=== PATIENT | female | born 1985 | race Caucasian/White ===

== ENCOUNTER 2019-04-16 08:15 | Day surgery (SDC) | payer OTHER ==
[~2019-04-16] VITALS: Ht 165.1 cm; Wt 86.1 kg
--- NOTE | ~2019-04-16 | O ---
[facility] [place] [address] OPERATIVE REPORT Name: MARIBEL TAVERASSHAVONNE Room #: 150-4 [facility] M..#: [id number] Admission: 04/16/19 Attend Phys: Abe Almeida MD Discharge: Date of : 89 Report #: [id number] THIS REPORT FOR: //name// CC: Willa Almeida DATE OF SERVICE: 04/16/2019 PREOPERATIVE DIAGNOSES: Chronic tonsillitis with tonsil and adenoid hypertrophy. POSTOPERATIVE DIAGNOSES: Chronic tonsillitis with tonsil and adenoid hypertrophy. OPERATIVE PROCEDURES: Tonsillectomy and adenoidectomy. ANESTHESIA: General endotracheal. DESCRIPTION OF PROCEDURE: The patient was taken to the operating room and placed in supine position. General anesthesia was induced by endotracheal intubation. Once adequate general anesthesia was obtained, the patient was draped in a sterile manner. A Jacque-Parish mouth gag was placed into the patient's mouth and tongue was deviated upwards. A throat pack was placed. Red rubber catheters were placed through the nose and nasopharynx and out the oropharynx and oral cavity to elevate the soft palate and the nasopharynx was visualized indirectly using a mirror. The adenoid was hypertrophied and adenoidectomy was performed by placing the adenoid curette at the base of the vomer and sweeping downward. The adenoid was removed and sent to pathology. Nasopharyngeal packing was placed. The right tonsil was grasped and deviated towards midline. An incision was placed in the anterior tonsillar pillar using the Bovie electrocautery and a plane between tonsillar capsule and tonsillar fossa was established. Dissection was carried out in this plane using the Bovie and hemostasis was achieved during the dissection. Dissection was carried out from superior to inferior. The inferior pole was incised and posterior tonsillar mucosa was incised. The tonsil was removed and sent to pathology. The left tonsil was removed in exactly the same manner. The area was then irrigated with normal saline. Hemostasis was verified in the tonsillar beds. The nasopharyngeal packing was removed. The nasopharynx was irrigated and there was adequate hemostasis in the nasopharynx as well. The throat pack, mouth gag and red rubber catheters were all removed. The patient tolerated the procedure well. Blood loss was approximately 10 mL. The patient was then awoken and taken to the recovery room in stable condition for postoperative monitoring. By: [id number] Abe Almeida MD /nt
[~2019-04-16 08:15] MED LIST: MECLIZINE HCL25 M1 PO; MULTIVITAMINS1 EAC7 PO; ULTRAM 50MG TAB50 MG PO
--- NOTE | 2019-04-16 08:44 | H ---
[facility] [place] [address] HISTORY AND PHYSICAL Name: SHAVONNE RASMUSSEN Room #: 150-4 [facility]..#: [id number] Admission: 04/16/19 Attend Phys: Abe Almeida MD Discharge: Date of : 89 Report #: [id number] THIS REPORT FOR: //name// CC: Willa Almeida PREOPERATIVE HISTORY AND PHYSICAL Her procedure is scheduled for 04/16/2019. HISTORY OF PRESENT ILLNESS: The patient is having problems with her throat. She has persistent swelling of her tonsils with white material that comes from her tonsils in the form of tonsil stones. She has persistent upper cervical adenopathy with discomfort. She has been getting a lot of pharyngitis and sinusitis. She does not breathe very well through her nose. She has had problems with her tonsils since she was a child. PAST MEDICAL HISTORY: Otherwise, not significant. MEDICATIONS: She is on no medications on a regular basis. ALLERGIES: SHE IS ALLERGIC TO TRAMADOL. PHYSICAL EXAMINATION: She had allergic swelling of the nasal tissues. She had 3+ enlarged tonsils with deep crypts and nasal endoscopy shows an enlarged adenoid especially at the superior aspect of the nasopharynx. IMPRESSION: Tonsil and adenoid hypertrophy with chronic tonsillitis and chronic sinusitis. PLAN: Tonsillectomy and adenoidectomy. <ELECTRONICALLY SIGNED> By: Abe Almeida MD 04/16/19 0844 1516 1535 Abe Almeida MD /felisa
[2019-04-16 09:33] VITALS: BP 129/67
--- NOTE | 2019-04-17 16:07 | PATH ---
[facility] [address] [place] [address] PATHOLOGY RPT PROCEDURE Name: SHAVONNE RASMUSSEN Room #: DEP [facility] M.R.#: [id number] Admission: 04/16/19 Date of : 89 Discharge: 04/16/19 Report #: [id number] Path Case #: [id number] [facility] Accession Number: [id number] . 01 Material submitted: . PART A: tonsil - RIGHT TONSIL AND ADENOID. Modifiers: right PART B: tonsil - LEFT TONSIL. Modifiers: left . 01 Clinical history: . Chronic tonsillitis, hypertrophy of tonsils and adenoids . 02 Diagnosis: A. Right tonsil and adenoid, right tonsillectomy and adenoidectomy: - Acutely inflamed epithelium overlying lymphoid tissue with reactive hyperplasia. . B. Left tonsil, tonsillectomy: - Acutely inflamed epithelium overlying lymphoid tissue with reactive hyperplasia. (IUV/db; 04/17/2019) LBQ 04/17/2019 1434 Local . 02 Electronically signed: . Toyin Stroud MD, Pathologist NPI- [id number] . 01 Gross description: . A. The specimen is received in formalin labeled "Shavonne Rasmussen, right tonsil and adenoid" and consists of a pink-ashraf tonsil weighing 4 g and measuring 3.2 x 2.2 x 1.1 cm. Sectioning reveals no gross lesions. Also received are 2 segments of friable pink-ashraf tissue compatible with tonsils measuring 1.6 x 1.0 cm and healthcare representative sections are submitted in A1. . B. The specimen is received in formalin labeled "Shavonne Rasmussen, left tonsil" and consists of a pink-ashraf tonsil weighing 5 g and measuring 3.4 x 2.1 x 1.4 cm. Sectioning reveals focal crypts filled with yellow-ashraf material and healthcare representative sections are submitted in B1. (SDY; 04/16/2019) SYU/SYU 04/16/2019 1705 Local . 02 Pathologist provided ICD-10: J35.3 . 02 CPT . 735541, 387916 Specimen Comment: A courtesy copy of this report has been sent to [phone], [place] [address] PATHOLOGY RPT PROCEDURE Name: SHAVONNE RASMUSSEN Room #: DEP [facility] M.R.#: [id number] Admission: 04/16/19 Date of : 89 Discharge: 04/16/19 Report #: [id number] Path Case #: [id number] Specimen Comment: [id number] Specimen Comment: Report sent to / DR ESPOSITO Performed at: [address], [place] [id number] MD Tomasz Durham MD Phone: [phone] Performed at: [address] [id number] MD Toyin Stroud MD Phone: [phone]
== END 2019-04-16 12:50 | disposition home or self-care (01) ==
LOC: OR 08:15 → TBA 08:15 → OR 09:19
DX: J35.01 Chronic tonsillitis (principal); J35.3 Hypertrophy of tonsils with hypertrophy of adenoids; J32.9 Chronic sinusitis, unspecified; Z98.890 Other specified postprocedural states; Z88.8 Allergy status to other drugs, medicaments and biological substances
CPT/HCPCS: 50010; 50101; 62110; 62900; 70005